=== PATIENT | female | born 1970 | race Caucasian/White ===

== ENCOUNTER → 2017-12-26 16:22 | Outpatient (CLI) | payer MEDICARE, OTHER, SELFPAY ==
--- NOTE | 2017-12-26 16:30 | MM_ITS ---
.. MM Dig screening mamm BI w/CAD CAD Screening ORDERING PHYSICIAN : April Bonilla PATIENT AGE: 47 years GENDER: Female COMPARISON: Previous mammograms:. None available We have requested & no outside films became than on been waiting over 2 weeks for outside films from [facility] at [facility] but has never received mammograms thus this study is dictated without such. Given the low-density benign-appearing breast the prior films are not as critical or important in this case. INDICATION: Bilateral breast reduction Has been taking female hormones over the past year. But Currently has IUD. Previous breast reduction x2 noted. Noncontributory family history TECHNIQUE: Standard CC and MLO images were obtained. R2 CAD reviewed. FINDINGS: Low-density breast bilaterally with perhaps very minor architecture changes from previous breast reduction but with no significant dominant mass nor suspicious calcifications in either breast. . No focal areas significant concern in 2 views. For example density asymmetric density lateral right breast dissipates on MLO view . I would encourage a bilateral follow-up in not over one year particularly if outside studies cannot be obtain confirm stable mild asymmetry . IMPRESSION...... We have been waiting on prior films from [place] but they have never arrived thus no studies for comparison No areas of significant concern on today's study. No significant suspicious radiographic but Minimal areas minor asymmetric density appear to be merely fibroglandular elements and/or possibly reflecting minor scarring from previous breast reduction asymmetric Follow-up in one year recommended BI-RADS Category: 2 Benign Finding(s) RECOMMENDED FOLLOW-UP: 1YR - 1 YEAR FOLLOW-UP (A letter has been sent to the patient regarding results of the study.)
== END ==
PROVIDERS: Family Provider Family Medicine; PCP Family Medicine; Visit Provider Internal Medicine
DX: Z12.31 Encounter for screening mammogram for malignant neoplasm of breast (principal)
CPT/HCPCS: 77067

== ENCOUNTER → 2018-02-10 15:28 | Outpatient (CLI) | payer MEDICARE, OTHER, SELFPAY ==
--- NOTE | 2018-02-10 15:37 | US_ITS ---
US transvaginal HISTORY: ITS.REASON: IUD COMPLICATIONS ORDERING PHYSICIAN: Referral Provider, PATIENT AGE: 47 years Comparison: None FINDINGS: The uterus measures 8 x 3 x 4 cm with a combined endometrial thickness of 8 mm. In IUD is noted within the endometrial canal. Left ovary is 1.4 x 1.5 cm. Right ovary is 1.6 x 1 7 m. Bilateral ovarian blood flow is present. No cul-de-sac fluid apparent. IMPRESSION: Intrauterine device within the endometrial canal. Otherwise negative
== END ==
PROVIDERS: Family Provider Family Medicine; PCP Family Medicine
DX: N93.8 Other specified abnormal uterine and vaginal bleeding (principal)
CPT/HCPCS: 76830

== ENCOUNTER → 2019-07-20 10:34 | Outpatient (CLI) | payer OTHER, SELFPAY ==
--- NOTE | 2019-07-20 10:38 | MM_ITS ---
PROCEDURE: MM DIG SCREENING MAMM BI W/CAD CLINICAL INDICATION: SCREENING There is no personal or family history of breast cancer. There has been previous biopsies on each breast for benign disease. COMPARISON: [facility] MM Dig screening mamm BI w/CAD from 12/26/2017 TECHNIQUE: Standard CC and MLO images were obtained. R2 CAD reviewed. FINDINGS: Scattered fibroglandular densities are seen throughout both breast on a background of fatty breast parenchyma. The findings of bilateral and symmetrical. There are couple of benign-appearing microcalcifications in each breast. There is no suspicious lesion and no suspicious microcalcifications. IMPRESSION: Fibrofatty parenchyma with no suspicious lesions seen BI-RAD Category: 2 Benign Finding(s) FOLLOW-UP: 1YR 1 Year Follow-up (A letter has been sent to the patient regarding results of the study.) Dictated by: Dr. Fredy Navarro MD 07/22/2019 11:[address] Fredy Navarro MD in [place] 07/22/2019 11:13
== END ==
PROVIDERS: PCP Internal Medicine; Visit Provider Internal Medicine
DX: Z12.31 Encounter for screening mammogram for malignant neoplasm of breast (principal)
CPT/HCPCS: 77067

== ENCOUNTER 2020-08-11 22:36 | Emergency (ER) | payer MEDICARE, OTHER, SELFPAY ==
[2020-08-11 22:37] VITALS: BP 152/96; PULSE 76; RESP 16; O2SAT 97
[2020-08-11 22:45] VITALS: BP 152/96; PULSE 77; RESP 18; TEMP 36.8; O2SAT 98; BMI 37.1
--- NOTE | 2020-08-11 22:59 | ECG_ITS ---
APPROVED REPORT Exam: Resting ECG HR:70 bpm ECG Measurements Heart Rate 70 AXES IA 162 P 51 QRSd 90 QRS 22 QT 422 T 54 QTc 455 Conclusion Normal sinus rhythm Normal ECG Electronically signed by : Braulio Bey, 08/14/2020 07:28:31
--- NOTE | 2020-08-11 23:02 | XR_ITS ---
PROCEDURE: XR CHEST 2V Referring Doctor: Paul Cooper Patient Age:49Y CLINICAL HISTORY: Left shoulder pain radiating to neck Left shoulder pain radiates neck COMPARISON: CR CXR2V XR chest 2V from 07/14/[address] ANGIO CHEST from 08/12/2020 FINDINGS: 3 days PA and lateral chest performed today nothing definitely acute.. Compared to June [address] chest from today The lungs are fairly well expanded and clear with nothing of acute significance. Only note scant linear scarring or atelectasis anteriorly at the right middle lobe region.. The heart is normal in size with rebekah and mediastinal structures unremarkable. The cardiomediastinal silhouette and pulmonary vascularity are within normal limits. The lungs are clear without infiltrates, suspicious nodules, or pleural effusions. No acute bony abnormalities. IMPRESSION: No significant acute findings; lungs clear Only suggestion scant linear atelectasis or scarring RML Dictated by: Sandip Will MD 08/12/2020 14:27 Sandip Will MD in [place] 08/12/2020 14:27
--- NOTE | 2020-08-11 23:02 | CT_ITS ---
PROCEDURE: CT SHOULDER LT WO CON Referring Doctor: Paul Cooper Patient Age:49Y CLINICAL HISTORY: Non-traumatic left-sided neck pain and left shoulder and the left humerus pain 3 days patient difficulty raising are using left arm the The COMPARISON: No exams were available for comparison TECHNIQUE: No IV contrast Helical axial l images obtained with sagittal and coronal reformats.; in addition 3D volume rendering image set with shading performed on independent CT workstation and submitted to PACS review-[facility]. All CT scans at the facility use one or more dose reduction, viz: automated exposure control, ma/kV adjustment per patient size (including targeted exams where dose is matched to indication, i.e. head), or iterative reconstruction technique. FINDINGS: No fracture or subluxation or dislocation at the left shoulder. Normal glenohumeral relationships.. AC joint is intact There is a small 5 mm calcification overlying the superior aspect greater tuberosity which corresponds with near the insertion of the supraspinatus tendon into the greater tuberosity. There is also a small 4 mm calcification of the anterior superior humerus which appears to be at or near the insertion of subscapularis tendon . Both these features are suspect for small areas of calcific tendinitis.. If pain persists or progresses MRI is a more sensitive modality to evaluate shoulder pathology. The but the scapula is intact. Again we see the slightly lobulated appearance at the inferior right lobe of thyroid towards isthmus of-suspect for underlying thyroid nodule-Possibly up to 2 cm size? A suggest thyroid ultrasound follow-up 1 left lung apex is clear IMPRESSION: No acute findings at the left shoulder. Glenohumeral joint and AC joint intact Findings do suggest possible Calcific Tendinitis left shoulder-noting small focal calcifications at insertion of subscapularis tendon upon the greater tuberosity; as well as 2nd calcification at the insertion of the supraspinatus tendon anteriorly. If shoulder symptoms persist or progress MRI would be more sensitive in useful modality to further evaluate Again note the prominent lobulated appearance inferior right lobe and right isthmus of thyroid. Suspect underlying thyroid nodule here recommend ultrasound Dictated by: Sandip Will MD 08/12/2020 13:19 Sandip Will MD in [place] 08/12/2020 13:19
--- NOTE | 2020-08-11 23:02 | CT_ITS ---
PROCEDURE: CT CERVICAL SPINE WO CON Referring Doctor: Paul Cooper Patient Age:49Y CLINICAL INDICATION: Non-traumatic neck pain shoulder pain COMPARISON: CT CT ANGIO CHEST from 08/12/2020 TECHNIQUE: No IV contrast Helical axial images obtained from base of skull through T2 with thickened axial images along with sagittal and coronal reformats on CT workstation. All CT scans at the facility use one or more dose reduction, viz: automated exposure control, ma/kV adjustment per patient size (including targeted exams where dose is matched to indication, i.e. head), or iterative reconstruction technique. FINDINGS: The cervical spine intact with no fracture nor subluxation is evident. Nonspecific straightening most likely reflects position a doubt spasm from recent pain or injury but Vertebral bodies are intact disc spaces are fairly well maintained. Only note scant posterior spurring at midline at C6/7 and scant uncovertebral joint hypertrophy C4/5 bilaterally. Mild facet arthropathy hypertrophy bilaterally at multiple levels a slightly more evident to the right C3-C7 The small dot like calcification in the ligamentum nuchae a posterior to the C 6-7 level. Normal prevertebral soft tissues... Normal C1/C2 relationships. Lobular appearance of the right lobe and isthmus of the thyroid suspect for possible underlying thyroid nodules. Suggest thyroid ultrasound Apices of lungs are clear with no acute findings. IMPRESSION: No fracture or subluxation cervical-spine. Vertebral bodies are intact . Only minimal degenerative changes C-spine/developing degenerate facet changes most notable . Nonspecific straightening most likely positional. . Incidental note lobulated appearance inferior right lobe and isthmus of thyroid-may reflect underlying nodules. Suggest/consider thyroid ultrasound follow-up Dictated by: Sandip Will MD 08/12/2020 13:03 Sandip Will MD in [place] 08/12/2020 13:03
[2020-08-11 23:07] VITALS: BP 146/98; PULSE 72; O2SAT 96
[2020-08-11 23:12] LABS: Basophils # 0.1 K/mm3 (0-0.2); Basophils % 1.2 % (0.1-2.0); Eosinophils # 0.2 K/mm3 (0.0-0.4); Eosinophils % 3.2 % (0.1-12.0); Hematocrit 44.5 % (37.0-47.0); Hemoglobin 14.3 g/dL (12.2-16.2); Lymphocytes # 2.4 K/mm3 (0.7-4.5); Lymphocytes % 32.1 % (10-50); Mean Corpuscular HGB Conc 32.2 g/dL (31.8-35.4); Mean Corpuscular Hemoglobin 26.6 pg (27.0-31.2); Mean Corpuscular Volume 82.6 fl (81-99); Mean Platelet Volume 7.9 fl (7.4-10.4); Monocytes # 0.4 K/mm3 (0.1-1.0); Monocytes % 5.6 % (1.7-9.3); Neutrophils # 4.4 K/mm3 (1.8-7.8); Platelet Count 241 K/mm3 (142-424); Red Blood Count 5.39 M/mm3 (4.20-5.40); Red Cell Distribution Width 16.1 % (11.5-17.5); White Blood Count 7.6 K/mm3 (4.8-10.8)
[2020-08-11 23:22] LABS: HCG Qualitative, Serum Negative (Negative)
[2020-08-11 23:23] LABS: Alanine Aminotransferase 12 U/L (12-78); Albumin Level 4.2 g/dl (3.5-5.0); Albumin/Globulin Ratio 1.2 (1.1-1.8); Alkaline Phosphatase 94 U/L (38-126); Anion Gap 11.3 mEq/L (5-15); Aspartate Amino Transferase 25 U/L (14-36); Bilirubin,Total 0.7 mg/dl (0.2-1.3); Blood Urea Nitrogen 12 mg/dl (7-17); Calcium 9.3 mg/dl (8.4-10.2); Carbon Dioxide 29 mmol/L (22.0-30.0); Chloride 104 mmol/L (98-107); Creatinine Clearance Estimated 142 mL/min (50-200); Estimated Glomerular Filt Rate 77 ml/min (>60); GFR (African American) 93 ML/MIN (>60); Globulin 3.5 g/dL (1.3-3.2); Glucose 90 mg/dl (74-100); Potassium 3.3 mmoL/L (3.5-5.1); Sodium 141 mmol/L (136-145); Total Protein,Serum 7.7 g/dl (6.3-8.2)
[2020-08-11 23:28] LABS: C-Reactive Protein 15.7 mg/L (0-4)
[2020-08-11 23:48] LABS: Erythrocyte Sedimentation Rate 28 mm/hr (0-20)
[2020-08-11 23:49] LABS: Troponin I < 0.01 ng/ml (0.00-0.034)
[2020-08-12] VITALS: BP 150/95; PULSE 77; RESP 16; O2SAT 97
--- NOTE | 2020-08-12 00:01 | CT_ITS ---
PROCEDURE: CT ANGIO CHEST Referring Doctor: Paul Cooper Patient Age:49Y CLINCIAL INDICATION: shoulder pain hx of aneurysm Chest pain. Shoulder pain 2 COMPARISON: CR RIBSRT XR ribs RT 2V from 07/14/2018 CR CXR2V XR chest 2V from 07/14/2018 CR XR CHEST 2V from 08/11/2020 TECHNIQUE: IV Contrast: 70ML Isovue 370 Axial images obtained with sagittal and coronal reformats. All CT scans at the facility use one or more dose reduction, viz: automated exposure control, ma/kV adjustment per patient size (including targeted exams where dose is matched to indication, i.e. head), or iterative reconstruction technique. FINDINGS: LUNGS: Unremarkable. No mass or consolidation. Lungs are well expanded and clear. Minor discoid atelectasis/scarring anterior aspect of lingula as well as as RML. PULMONARY ARTERIES: Good enhancement and visualization of pulmonary arteries with no pulmonary embolus evident.. AORTA: No acute finding. dilatation ascending aorta. Borderline aneurysmal dilatation of the ascending aorta-It measures just over 4.5 cm diameter. No aortic dissection evident PLEURAL SPACES: No significant effusion. No evidence of pneumothorax. HEART: Unremarkable. Normal heart size. No significant pericardial effusion. MEDIASTINAL AND HILAR STRUCTURES: No mediastinal or hilar mass evident. No significant appearing adenopathy. No dominant adenopathy. Subtle ill-defined hazy appearance and lymph nodes anterior mediastinum, anterior aspect of AP window--some of this could reflect faint residual of regressed thymus. Not felt of current significance No prominent enlarged lymph nodes at mediastinum nor axilla nor retrocrural. BONY STRUCTURES: No acute bony abnormalities apparent.. Mild degenerative changes and Schmorl's nodes at throughout the lower T-spine noted .. The UPPER ABDOMEN: Unremarkable. IMPRESSION: No evidence of pulmonary embolism. Normal appearing pulmonary arteries Aorta.. Dilatation of ascending aorta up to 4.5 cm warrants follow-up period a no dissection . Lungs clear-no active disease .. Generous, lobulated inferior pole right lobe thyroid and right isthmus thyroid again noted. Suggest ultrasound in follow-up Dictated by: Sandip Will MD 08/12/2020 14:19 Sandip Will MD in [place] 08/12/2020 14:19
[2020-08-12 00:31] LABS: Microscopic, Urine URINE MICROSCOPIC (MICROSCOPIC)
--- NOTE | 2020-08-12 00:33 | HMH.EDUPEXT ---
ED Disposition Clinical Impression: Ascending aortic aneurysm Shoulder pain, left Qualifiers: Chronicity: acute Qualified Code(s): M25.512 - Pain in left shoulder Disposition: Home, Self-Care Condition on Discharge: Good Instructions: DI for Shoulder Pain Additional Instructions: use meds and see pcp for follow up Prescriptions: predniSONE [Prednisone 20mg Tab] 20 mg PO BID #10 tab Transmission Status: Pending to [facility] Referrals: PCP,No [Primary Care Provider] - - Critical Care Critical Care Time: No Attestation: On 08/11/20, the high probability of a clinically significant, sudden or life threatening deterioration of the following system(s) required my full and direct attention, intervention and personal management. The time I documented below is in addition to time spent performing reported procedures but includes the following listed in this critical care notation. Medical Decision Making - Medical Records Medical records reviewed: Yes: I reviewed the patient's medical records. - Simon Inquiry Pt receiving controlled substance: No Vital Signs: 08/11/20 22:37 08/11/20 22:45 08/11/20 23:07 Temperature 98.2 F Temperature Source Oral Pulse Rate [Right] 76 77 72 Respiratory Rate 16 18 Blood Pressure [Right Arm] 152/96 H 152/96 H 146/98 H Blood Pressure Mean [Right Arm] 114 114 114 Blood Pressure Source [Right Arm] Automatic Cuff Automatic Cuff Automatic Cuff Blood Pressure Position [Right Arm] Supine Sitting Supine 02 Sat by Pulse Oximetry 97 98 96 Oxygen Delivery Method Room Air Room Air Room Air 08/12/20 00:00 Temperature Temperature Source Pulse Rate [Right] 77 Respiratory Rate 16 Blood Pressure [Right Arm] 150/95 H Blood Pressure Mean [Right Arm] 113 Blood Pressure Source [Right Arm] Automatic Cuff Blood Pressure Position [Right Arm] Supine 02 Sat by Pulse Oximetry 97 Oxygen Delivery Method Room Air - Lab Data Lab results reviewed: Yes: I reviewed the patient's lab results. Lab Results 08/11/20 22:42: WBC 7.6, RBC 5.39, Hgb 14.3, Hct 44.5, MCV 82.6, MCH 26.6 L, MCHC 32.2, RDW 16.1, Plt Count 241, MPV 7.9, Neut % (Auto) 58.0, Lymph % (Auto) 32.1, Jewell % (Auto) 5.6, Eos % (Auto) 3.2, Baso % (Auto) 1.2, Neut # (Auto) 4.4, Lymph # (Auto) 2.4, Jewell # (Auto) 0.4, Eos # (Auto) 0.2, Baso # (Auto) 0.1 08/11/20 22:42: Sodium 141, Potassium 3.3 L, Chloride 104, Carbon Dioxide 29, Anion Gap 11.3, BUN 12, Creatinine 0.80, Estimated Creat Clear 142, Estimated GFR 77, Est GFR ( Amer) 93, Glucose 90, Calcium 9.3, Total Bilirubin 0.7, AST 25, ALT 12, Alkaline Phosphatase 94, Troponin I < 0.01, C-Reactive Protein 15.7 H, Total Protein 7.7, Albumin 4.2, Globulin 3.5 H, Albumin/Globulin Ratio 1.2 08/11/20 22:42: ESR 28 H 08/11/20 22:42: Serum HCG, Qual Negative 08/12/20 00:25: Urine Color Yellow, Urine Appearance Clear, Urine pH 6.0, Ur Specific [place] 1.015, Urine Protein Negative, Urine Glucose (UA) Negative, Urine Ketones Negative, Urine Blood Trace-i, Urine Nitrate Negative, Urine Bilirubin Negative, Urine Urobilinogen 0.2, Ur Leukocyte Esterase Negative, Urine RBC 3-5, Ur Squamous Epith Cells 10-20 Result diagrams: 08/11/20 22:42 08/11/20 22:42 Orders (Tests/Meds): ED MEDICATIONS Generic Name Dose Route Start Last Admin Trade Name Freq PRN Reason Stop Dose Admin Sodium Chloride 1,000 mls @ 999 mls/hr 08/11/20 23:15 08/11/20 23:12 Sod Chlor 0.9% 1000ml Bag IV 08/12/20 00:15 999 mls/hr .Q1H1M CARLOS Administration Discontinued Medications Generic Name Dose Route Start Last Admin Trade Name Freq PRN Reason Stop Dose Admin Iopamidol 70 ml 08/12/20 00:32 08/12/20 00:06 Iopamidol-370 (76%);100ml Bottle IV 08/12/20 00:33 70 ml ONCE ONE Administration Ketorolac Tromethamine 30 mg 08/11/20 23:09 08/11/20 23:11 Ketorolac 30mg/Ml Vial IV 08/11/20 23:10 30 mg ONCE ONE Administration Methylprednisolone Sodium Succinate 125 mg
[2020-08-12 00:34] LABS: Appearance,Urine CLEAR (Clear); Bilirubin,Urine Negative (Negative); Blood, Urine TRACE-I (Negative); Color,Urine YELLOW (Yellow); Glucose,Urine (UA) Negative (Negative); Ketones,Urine Negative (Negative); Leukocyte Esterase,Urine Negative (Negative); Nitrate,Urine Negative (Negative); Protein,Urine Negative (Negative); Specific Gravity, Urine 1.015 (1.005-1.030); Urobilinogen,Urine 0.2 EU/dl (0.2)
[2020-08-12 01:15] VITALS: BP 144/86; PULSE 70; RESP 16; TEMP 36.8; O2SAT 98
== END 2020-08-12 01:18 | disposition home or self-care (01) ==
PROVIDERS: Emergency Provider Emergency Medicine
DX: I71.2 Thoracic aortic aneurysm, without rupture (principal); M25.512 Pain in left shoulder; M54.2 Cervicalgia; Z79.899 Other long term (current) drug therapy
CPT/HCPCS: 71046; 71275; 72125; 73200; 80053; 81001; 84484; 84703; 85025; 85651; 86140; 93005; 96365; 96375; 99284; Q9967

== ENCOUNTER → 2021-10-03 11:05 | Outpatient (CLI) | payer MEDICARE, OTHER, SELFPAY | PROVIDERS: Visit Provider Nurse Practitioner | DX: U07.1 COVID-19 (principal) | CPT/HCPCS: C9803; U0003; U0005 ==

== ENCOUNTER 2021-10-05 10:21 | Emergency (ER) | payer MEDICARE, OTHER, SELFPAY ==
[2021-10-05 10:32] VITALS: BP 130/99; PULSE 64; RESP 16; TEMP 36.8; O2SAT 100; BMI 35.7
[2021-10-05 10:40] VITALS: BP 130/99; PULSE 64; RESP 16; TEMP 36.8; O2SAT 100; BMI 35.8
--- NOTE | 2021-10-05 10:53 | HMH.EDUTC ---
[facility] Disposition Clinical Impression: Sore throat (viral) Disposition: Home, Self-Care Condition on Discharge: Good Instructions: Sore Throat, DI for COVID-19 (Suspected or Confirmed ), Preventing the Spread of Coronavirus Discharge Instructions Additional Instructions: *Monitor Temp, Over the counter Motrin or Tylenol as directed/as needed Tylenol every 4 hours and Motrin every 6 hours (as long as your family doctor has told you that you can take it) for fever or pain. and straight to ER if unable to lower temp less than 101.0 after medication given *Warm salt water gargles may help to soothe the throat *Throat Lozenges *Warm fluids like tea with honey may help to soothe the throat *Sleep elevated *Humidifier/Vaporizer Your throat swab was sent for culture. Those results are typically sent to your primary care. Be sure to follow up in 2-3 days with your family doctor/primary care physician if no improvement so they can review those result and treat if necessary. If you don?t have a primary care doctor, I recommend you get one but in the mean time, you will have to return to a walk in clinic Follow up IMMEDIATELY for new or worsening symptoms or no Noticeable improvement over the next 48-72 hours. 911 for difficulty breathing or swallowing Referrals: April Bonilla [Primary Care Provider] - As needed Time of Disposition: 12:07 Medical Decision Making - Simon Inquiry Pt receiving controlled substance: No Simon was queried for this patient: No Vital Signs: 10/05/21 10:32 10/05/21 10:40 10/05/21 11:23 Temperature 98.2 F 98.2 F 98.2 F Temperature Source Oral Oral Pulse Rate 64 Pulse Rate [Left Radial] 64 64 Respiratory Rate 16 16 16 Blood Pressure 130/99 H Blood Pressure [Left Arm] 130/99 H 130/99 H Blood Pressure Mean [Left Arm] 109 109 Blood Pressure Source [Left Arm] Automatic Cuff Automatic Cuff Blood Pressure Position [Left Arm] Sitting Sitting 02 Sat by Pulse Oximetry 100 100 Oxygen Delivery Method Room Air Room Air - Lab Data Lab results reviewed: Yes: I reviewed the patient's lab results. Lab Results 10/05/21 11:15: Group A Strep Rapid Negative Orders (Tests/Meds): ORDERS Category Date Time Status Strep Screen Confirmation Stat Micro 10/05/21 11:15 Received Medical Decision Narrative: 1150 Rapid strep not back yet contacted lab advised will be about 10 more minutes patient advised Patient strep result back patient agitated and walked out of [facility] as she was being told that her results was negative and said she wast waiting any longer [facility] HPI - General Stated complaint: covid postive, possible strep Time Seen by Provider: 10/05/21 10:53 Mode of Arrival: Ambulatory Source of Information: Patient Limitations: No Limitations Description of Symptoms (Recalled from Triage Doc. by RN): PATIENT STATES SHE TESTED POSITIVE FOR COVID ON 10/03/21. SHE C/O WORSENING SORE THROAT AND IS WANTING TESTED FOR STREP HEENT Symptoms (Recalled from RN notes): Yes Resp Symptoms (Recalled from RN notes): No Skin Symptoms (Recalled from RN notes): No MS Symptoms (Recalled from RN notes): No Functional Status (Recalled from RN notes): WNL - History of Present Illness Provider Complaint: Patient states that she has been having sore throat States that she recently tested positive for COVID and wasnt sure if her sore throat was from COVID or if she may have strep throat - Related Data Home Medications Medication Instructions Recorded Confirmed Amlodipine Besylate [Norvasc 5mg 5 mg PO DAILY 08/11/20 08/11/20 tablet] Gabapentin [Neurontin 600mg 600 mg PO BID 08/11/20 08/11/20 tablet] SUMAtriptan succinate [Sumatriptan 100 mg PO DAILY 08/11/20 08/11/20 Succinate] Sertraline HCl [Zoloft 100mg 100 mg PO BID 08/11/20 08/11/20 tablet] buPROPion HCL [Wellbutrin XL] 150 mg PO DAILY 08/11/20 08/11/20 ondansetron HCL [Ondansetron 8mg 8 mg PO TIDP PRN 08/11/20 08/11/20 tab*]
[2021-10-05 11:23] VITALS: BP 130/99; PULSE 64; RESP 16; TEMP 36.8; O2SAT 100
[2021-10-05 11:57] LABS: Strep Scrn Group A (Rapid) Negative (Negative)
--- NOTE | 2021-10-05 12:02 | PC.NURSE ---
PATIENT STATES I'VE BEEN WAITING 45 MINUTES AND WALKED OUT, LEAVING BEFORE DISCHARGE PAPERS WERE GIVEN.
== END 2021-10-05 12:05 | disposition home or self-care (01) ==
PROVIDERS: Emergency Provider Nurse Practitioner; PCP Internal Medicine
DX: U07.1 COVID-19 (principal); J02.9 Acute pharyngitis, unspecified; G43.709 Chronic migraine without aura, not intractable, without status migrainosus; Z79.899 Other long term (current) drug therapy
CPT/HCPCS: 87430; 99202; G0463

== ENCOUNTER 2022-02-06 00:10 | Emergency (ER) | payer MEDICARE, OTHER, SELFPAY ==
[2022-02-06 00:10] VITALS: BP 148/78; PULSE 95; RESP 16; TEMP 36.9; O2SAT 96; BMI 37.4
[2022-02-06 00:36] LABS: Microscopic, Urine URINE MICROSCOPIC (MICROSCOPIC)
[2022-02-06 00:37] LABS: Appearance,Urine CLOUDY (Clear); Blood, Urine 3+ (Negative); Color,Urine ORANGE (Yellow); Glucose,Urine (UA) TRACE (Negative); Ketones,Urine Negative (Negative); Leukocyte Esterase,Urine Negative (Negative); Nitrate,Urine POSITIVE (Negative); Protein,Urine 3+ (Negative); Specific Gravity, Urine >= 1.030 (1.005-1.030); Urobilinogen,Urine 0.2 EU/dl (0.2)
[2022-02-06 00:38] LABS: Bilirubin,Urine 1+ (Negative)
[2022-02-06 00:40] LABS: Bacteria,Urine 1+ /lpf; RBC,Urine TNTC #/hpf (0-3)
--- NOTE | 2022-02-06 00:40 | CT_ITS ---
PROCEDURE INFORMATION: Exam: CT Abdomen And Pelvis Without Contrast Exam date and time: 02/06/2022 1:17 AM Age: 51 years old Clinical indication: Abdominal pain; Localized; Lower; Additional info: Abd/back pain TECHNIQUE: Imaging protocol: Computed tomography of the abdomen and pelvis without contrast. Radiation optimization: All CT scans at this facility use at least one of these dose optimization techniques: automated exposure control; mA and/or kV adjustment per patient size (includes targeted exams where dose is matched to clinical indication); or iterative reconstruction. COMPARISON: TRANVAG US transvaginal 02/10/2018 3:34 PM FINDINGS: Lungs: Calcified granuloma in the left lower lobe. Visualized lung bases otherwise clear. Liver: Liver mildly enlarged measuring 17.8 cm in length. Liver does not meet attenuation criteria for steatosis on this exam. Few scattered calcified granulomas in the liver. Gallbladder and bile ducts: No wall thickening. No calcified stones. No biliary dilation. Pancreas: Unremarkable noncontrast appearance. Spleen: Normal. No splenomegaly. Adrenal glands: Normal. No mass. Kidneys and ureters: There is a 0.9 x 0.7 cm calculus in the left renal pelvis. Minimal fullness of the left renal collecting system as compared to the right. No ureteral calculus. No right renal calculi or hydronephrosis. Stomach and bowel: No bowel dilation or obstruction. Colonic diverticulosis, without evidence of acute diverticulitis. Appendix: Normal appendix. Intraperitoneal space: No pneumoperitoneum. No ascites. Vasculature: No abdominal aortic aneurysm. Scattered mild calcified plaque. Lymph nodes: No enlarged lymph nodes. Urinary bladder: Bladder decompressed, limiting its evaluation. Reproductive: Intrauterine device. Bones/joints: Transitional lumbosacral anatomy, with pseudoarthrosis on the left. Lower lumbar degenerative changes with associated neural foraminal narrowing. No acute fracture. Soft tissues: Unremarkable. IMPRESSION: 1. A 0.9 x 0.7 cm calculus is present in the left renal pelvis, with minimal asymmetric fullness of the left renal collecting system. 2. Few other chronic/ancillary findings as above.
[2022-02-06 00:50] LABS: Chloride 100 mmol/L (98-107); Sodium 139 mmol/L (136-145)
[2022-02-06 00:51] LABS: Potassium 3.1 mmoL/L (3.5-5.1)
[2022-02-06 00:53] LABS: Alanine Aminotransferase 20 U/L (12-78); Alkaline Phosphatase 84 U/L (38-126); Amylase 59 U/L (30-110); Anion Gap 11.1 mEq/L (5-15); Aspartate Amino Transferase 34 U/L (14-36); Bilirubin,Total 0.7 mg/dl (0.2-1.3); Blood Urea Nitrogen 20 mg/dl (7-17); Carbon Dioxide 31 mmol/L (22.0-30.0); Creatinine Clearance Estimated 90 mL/min (50-200); Estimated Glomerular Filt Rate 48 ml/min (>60); GFR (African American) 58 ML/MIN (>60)
[2022-02-06 00:54] LABS: Albumin Level 4.6 g/dl (3.5-5.0); Albumin/Globulin Ratio 1.4 (1.1-1.8); Calcium 10.3 mg/dl (8.4-10.2); Globulin 3.2 g/dL (1.3-3.2); Glucose 135 mg/dl (74-100); Lipase 81 U/L (23-300); Total Protein,Serum 7.8 g/dl (6.3-8.2)
[2022-02-06 00:59] LABS: C-Reactive Protein 16.8 mg/L (0-4)
--- NOTE | 2022-02-06 01:03 | [facility].EDUROGF ---
ED Disposition Clinical Impression: Renal colic on left side Disposition: Home, Self-Care Condition on Discharge: Good Instructions: Kidney Stones -- Adult Additional Instructions: use meds and see pcp and urology Prescriptions: Tamsulosin HCl [Flomax 0.4mg capsule] 0.4 mg PO HS #10 cap Transmission Status: Pending to [facility] levoFLOXacin [Levaquin 500mg tab] 500 mg PO DAILY #7 tab Transmission Status: Pending to [facility] Referrals: April Bonilla [Primary Care Provider] - - Critical Care Critical Care Time: No Attestation: On 02/06/22, the high probability of a clinically significant, sudden or life threatening deterioration of the following system(s) required my full and direct attention, intervention and personal management. The time I documented below is in addition to time spent performing reported procedures but includes the following listed in this critical care notation. Medical Decision Making - Medical Records Medical records reviewed: Yes: I reviewed the patient's medical records. - Simon Inquiry Pt receiving controlled substance: No Vital Signs: 02/06/22 00:10 Temperature 98.5 F Temperature Source Oral Pulse Rate [Left] 95 H Respiratory Rate 16 Blood Pressure [Right Arm] 148/78 H Blood Pressure Mean [Right Arm] 101 02 Sat by Pulse Oximetry 96 Oxygen Delivery Method Room Air - Lab Data Lab results reviewed: Yes: I reviewed the patient's lab results. Lab Results 02/06/22 00:18: Urine Color [place], Urine Appearance Cloudy, Urine pH 5.0, Ur Specific [place] >= 1.030, Urine Protein 3+, Urine Glucose (UA) Trace, Urine Ketones Negative, Urine Blood 3+, Urine Nitrate Positive, Urine Bilirubin 1+ A, Urine Urobilinogen 0.2, Ur Leukocyte Esterase Negative, Urine RBC Tntc, Urine WBC 3-5, Ur Squamous Epith Cells 3-5, Urine Bacteria 1+ 02/06/22 00:18: Urine HCG, Qual Negative 02/06/22 00:20: WBC 9.0, RBC 4.61, Hgb 12.9, Hct 37.1, MCV 80.5 L, MCH 27.9, MCHC 34.6, RDW 16.4, Plt Count 272, MPV 7.8, Neut % (Auto) 60.8, Lymph % (Auto) 28.8, [place] % (Auto) 5.9, Eos % (Auto) 1.8, Baso % (Auto) 2.7 H, Neut # (Auto) 5.4, Lymph # (Auto) 2.6, [place] # (Auto) 0.5, Eos # (Auto) 0.2, Baso # (Auto) 0.2, ESR 36 H 02/06/22 00:20: Sodium 139, Potassium 3.1 L, Chloride 100, Carbon Dioxide 31 H, Anion Gap 11.1, BUN 20 H, Creatinine 1.20 H, Estimated Creat Clear 90, Estimated GFR 48 L, Est GFR ( Amer) 58 L, Glucose 135 H, Calcium 10.3 H, Total Bilirubin 0.7, AST 34, ALT 20, Alkaline Phosphatase 84, C-Reactive Protein 16.8 H, Total Protein 7.8, Albumin 4.6, Globulin 3.2, Albumin/Globulin Ratio 1.4, Amylase 59, Lipase 81 Result diagrams: 02/06/22 00:20 02/06/22 00:20 Orders (Tests/Meds): ED MEDICATIONS Generic Name Dose Route Start Last Admin Trade Name Freq PRN Reason Stop Dose Admin Sodium Chloride 1,000 mls @ 999 mls/hr 02/06/22 01:45 02/06/22 01:50 Sod Chlor 0.9% 1000ml Bag IV 02/06/22 02:45 999 mls/hr .Q1H1M CARLOS Administration Tamsulosin HCl 0.4 mg 02/06/22 21:00 02/06/22 01:59 Tamsulosin 0.4mg Capsule PO 03/08/22 20:59 0.4 mg HS CARLOS Administration Discontinued Medications Generic Name Dose Route Start Last Admin Trade Name Freq PRN Reason Stop Dose Admin Levofloxacin 500 mg 02/06/22 01:59 Levofloxacin 500mg Tab PO 02/06/22 02:00 ONCE ONE Ondansetron HCl 4 mg 02/06/22 01:48 02/06/22 01:51 Ondansetron 4mg/2ml Vial IV 02/06/22 01:49 4 mg ONCE ONE Administration Potassium Chloride 20 meq 02/06/22 01:44 02/06/22 01:49 Potassium Chloride 20meq Tab PO 02/06/22 01:45 20 meq ONCE ONE Administration ORDERS Category Date Time Status Amylase Stat Lab 02/06/22 00:20 Results C-Reactive Protein Stat Lab 02/06/22 00:20 Results Comprehensive Metabolic Panel Stat Lab 02/06/22 00:20 Results Lipase Stat Lab 02/06/22 00:20 Results Procalcitonin Stat Lab 02/06/22 00:20 Results - CT Data CT Scan: Abdomen, Pel
[2022-02-06 01:15] LABS: Urine Pregnancy, HCG Qual. Negative (Negative)
[2022-02-06 01:16] LABS: Basophils # 0.2 K/mm3 (0-0.2); Basophils % 2.7 % (0.1-2.0); Eosinophils # 0.2 K/mm3 (0.0-0.4); Eosinophils % 1.8 % (0.1-12.0); Hematocrit 37.1 % (37.0-47.0); Hemoglobin 12.9 g/dL (12.2-16.2); Lymphocytes # 2.6 K/mm3 (0.7-4.5); Lymphocytes % 28.8 % (10-50); Mean Corpuscular HGB Conc 34.6 g/dL (31.8-35.4); Mean Corpuscular Hemoglobin 27.9 pg (27.0-31.2); Mean Corpuscular Volume 80.5 fl (81-99); Mean Platelet Volume 7.8 fl (7.4-10.4); Monocytes # 0.5 K/mm3 (0.1-1.0); Monocytes % 5.9 % (1.7-9.3); Neutrophils # 5.4 K/mm3 (1.8-7.8); Neutrophils % 60.8 % (37.0-80.0); Platelet Count 272 K/mm3 (142-424); Red Blood Count 4.61 M/mm3 (4.20-5.40); Red Cell Distribution Width 16.4 % (11.5-17.5)
[2022-02-06 01:50] LABS: Erythrocyte Sedimentation Rate 36 mm/hr (0-20)
[2022-02-06 02:10] VITALS: BP 127/88; PULSE 83; RESP 15; TEMP 37.1; O2SAT 96
[2022-02-06 03:03] LABS: Procalcitonin 0.116 ng/mL (0.0-2.0)
== END 2022-02-06 02:16 | disposition home or self-care (01) ==
PROVIDERS: Emergency Provider Emergency Medicine; PCP Internal Medicine
DX: N20.0 Calculus of kidney (principal); Z87.442 Personal history of urinary calculi; Z88.2 Allergy status to sulfonamides
CPT/HCPCS: 74176; 80053; 81001; 81025; 82150; 83690; 84145; 85025; 85651; 86140; 96365; 96375; 99284; J2405